=== PATIENT | female | born 2000 | race Caucasian/White ===

== ENCOUNTER 2019-04-08 20:15 | Emergency (ER) | payer MEDICAID ==
[~2019-04-08] VITALS: Ht 160 cm; Wt 49.9 kg
[~2019-04-08 20:15] MED LIST: NOHOMEMEDICATIONS
[2019-04-08 21:11] LABS: ABSOLUTE NEUTROPHILS 4.9 thou/uL (1.4-8.2); BASOPHILS 0.4 % (0.0-2.0); EOSINOPHILS 0.7 % (0.0-3.0); HEMATOCRIT 39.2 % (37.0-47.0); HEMOGLOBIN 13.3 gm/dL (12.0-15.0); LYMPHOCYTES 27.6 % (24.0-44.0); MCH 30.5 pg (26.0-34.0); MCV 89.7 fL (80.0-100.0); MONOCYTES 7.9 % (1.0-8.0); PLATELET COUNT 188 thou/uL (150-400); POLYS 63.4 % (36.0-66.0); RBC 4.37 mil/uL (4.20-5.00); RDW 13.2 % (10.5-14.5); WBC 7.8 thou/uL (4.0-11.0)
[2019-04-08 21:14] LABS: CALCIUM 9.2 mg/dL (8.5-10.1); CREATININE 0.8 mg/dL (0.6-1.0); MAGNESIUM 1.8 mg/dL (1.8-2.4); POTASSIUM 3.9 mmol/L (3.5-5.1)
[2019-04-08 21:31] LABS: URINE BILIRUBIN NEGATIVE (Negative); URINE BLOOD NEGATIVE (Negative); URINE CLARITY SL CLOUDY; URINE COLOR YELLOW; URINE GLUCOSE-RANDOM* NEGATIVE (Negative); URINE KETONES NEGATIVE (Negative); URINE LEUKOCYTES-REFLEX NEGATIVE (Negative); URINE NITRITE-REFLEX NEGATIVE (Negative); URINE PROTEIN (DIPSTICK) NEGATIVE (Negative); URINE SPECIFIC GRAVITY 1.015 (1.005-1.035); URINE UROBILINOGEN 0.2 E.U./dl (0.2-1.0)
[2019-04-08 21:55] LABS: LARGE PLATELETS FEW
[2019-04-08 22:40] VITALS: BP 103/67
--- NOTE | 2019-04-09 08:05 | EKG ---
[address] [address] ELECTROCARDIOGRAM REPORT Name: ELLIS ARVIZU Room #: DEP [facility]USAngie#: [id number] ������������������ Admission: 04/08/19 ������������������ Attend Phys: Discharge: 04/08/19 ������������������ Date of : [birth year] Report #: [id number] ����������������������������������������������������������������� [id number] THIS REPORT FOR: //name// [facility] ED Test Date: 2019-04-08 Test Time: 20:30:02 Pat Name: ELLIS ARVIZU Department: Room: Gender: F Key Account Representative: TERRELL : 2000 Requested By: Mihaela Morales Order Number: [id number] MD: Jose Ramon Dow Measurements Intervals [place] Rate: 64 P: 47 IN: 128 QRS: 89 QRSD: 83 T: 39 QT: 378 QTc: 390 Interpretive Statements Sinus rhythm Probable left atrial enlargement RSR' in V1 or V2, probably normal variant No previous ECG available for comparison Electronically Signed On 04-09-2019 8:05:13 CDT by Jose Ramon Dow [email or web address] ��������������������������������������������� <ELECTRONICALLY SIGNED> ���������������������������������������� By: Jose Ramon Dow MD ��������������������������������������������� 04/09/19804 29 2030 Jose Ramon Dow MD /[email or web address]
== END 2019-04-08 22:41 | disposition home or self-care (01) ==
LOC: ER 20:15
PROVIDERS: Emergency Medicine
DX: R00.2 Palpitations (principal); R42 Dizziness and giddiness; Z87.891 Personal history of nicotine dependence